=== PATIENT | male | born 1945 | race Caucasian/White ===

== ENCOUNTER → 2017-10-30 | Outpatient (CLI) | payer OTHER ==
[~2017-10-30] MED LIST: ASPI-319 PO; COEN1CAP7 PO; ESCI10TA17 PO; FLAX12003 PO; FRS/40 PO; GARL10007 PO; GLC/500 PO; KLN1X PO; LOSA50TA6 PO; METO25TA3 PO; NITR0.4S UT; OMEG1CAP93 PO; ROSU40TA PO
--- NOTE | 2017-10-30 10:57 | DIAGNOSTIC IMAGING REPORT ---
ABDOMEN LIMITED (US) HISTORY: Neutropenia NEUTROPENIA. COMPARISON: None. FINDINGS: Spleen.: Maximum dimension 9.5 cm. Uniform internal echogenicity. Pancreas: The pancreas demonstrates a normal echotexture. Liver: Unremarkable. Maximum dimension 14 cm Gallbladder: No gallbladder wall thickening. No gallstones. CBD: 5 mm Right kidney: No hydronephrosis. IMPRESSION: No significant abnormality identified within the within the upper abdomen. The above report was generated using voice recognition software. It may contain grammatical, syntax or spelling errors. Electronically signed by: Danny Elizabeth M.D. 10/30/2017 10:55 AM Dictated Date/Time: 10/30/2017 10:53 AM
== END | disposition home or self-care (01) ==
LOC: C.ULTR 09:57
PROVIDERS: ATTEND Internal Medicine Hematology & Oncology
DX: D70.8 Other neutropenia (principal)